=== PATIENT | male | born 1995 | race Caucasian/White ===

== ENCOUNTER 2019-01-21 14:58 | Emergency (ER) | payer OTHER ==
[~2019-01-21] VITALS: Ht 175.3 cm; Wt 91.2 kg
[2019-01-21] MEDS ORDERED: IBUP200C25 PO (15:06)
[2019-01-21] MEDS ORDERED: AMOXICILLIN 500 MG CAP PO ONE (18:45)
[2019-01-21] MEDS ORDERED: CORTISPORIN OTIC SOLN 10 ML BTL AS ONE (18:45)
[2019-01-21] MEDS ORDERED: NORCO 5/325MG TABLET (BULK FOR ED) PO ONE (18:45)
[2019-01-21 19:17] VITALS: BP 127/85
[2019-01-21] MEDS ORDERED: AMOX500C PO (20:08)
[2019-01-21] MEDS ORDERED: NEOM1SUS10 AS (20:08)
== END 2019-01-21 19:19 | disposition home or self-care (01) ==
LOC: M ED 14:58
DX: H60.91 Unspecified otitis externa, right ear (principal); H60.92 Unspecified otitis externa, left ear